=== PATIENT | female | born 1950 | race Hispanic/Latino ===

== ENCOUNTER 2018-08-03 07:24 | Day surgery (SDC) | payer MEDICARE ==
[2018-07-31 11:44] VITALS: BP 172/69
[2018-07-31 11:52] LABS: BASOPHILS % (AUTO) 0.6 % (0.0-5.0); HEMATOCRIT 32.3 % (36-48); LYMPHOCYTES % (AUTO) 30.1 % (21.0-51.0); MEAN CORPUSCULAR HEMOGLOBIN 25.2 pg (27.0-33.0); MEAN CORPUSCULAR HGB CONC 33.3 g/dL (32.0-36.0); MEAN CORPUSCULAR VOLUME 75.5 fL (79-99); MONOCYTES % (AUTO) 7.2 % (3.0-13.0); NEUTROPHILS % (AUTO) 61.1 % (40.0-77.0); PLATELET COUNT (AUTO) 530 K/uL (130-400); RED BLOOD CELL COUNT(AUTO) 4.28 MIL/uL (4.00-5.50); RED CELL DISTRIBUTION WIDTH 15.2 % (11.0-15.5); WHITE BLOOD COUNT (AUTO) 7.2 K/uL (4.8-10.8)
[2018-07-31 12:02] LABS: APPEARANCE,URINE Clear (CLEAR); BILIRUBIN,URINE Negative (NEGATIVE); COLOR,URINE Yellow (YELLOW); GLUCOSE, URINE (UA) Negative (NEGATIVE); KETONES,URINE Negative (NEGATIVE); LEUKOCYTE ESTERASE ,URINE Negative (NEGATIVE); NITRATE,URINE Negative (NEGATIVE); OCCULT BLOOD,URINE Negative (NEGATIVE); PROTEIN,URINE Negative (NEGATIVE); UROBILINOGEN,URINE 0.2 mg/dL (0.2-1.0)
[2018-07-31 12:05] LABS: CREATININE 0.8 mg/dL (0.5-1.5); POTASSIUM 3.8 mmol/L (3.5-5.1)
[2018-07-31 12:08] LABS: INR 0.95 (0.85-1.15)
--- NOTE | 2018-07-31 17:09 | NUR ---
LABS ABNORMAL LABS REPORTED TO [facility], NO FURTHER ORDERS GIVEN
[~2018-08-03] VITALS: Ht 160 cm; Wt 76.9 kg
[2018-08-03] VITALS (9 sets, daily range): BP systolic 130–147; BP diastolic 60–67
[~2018-08-03 07:24] MED LIST: AEC81 PO; AMLO5TAB9 PO; GABA-531 PO; HYDR25TA PO; INSU100I15 SQ; INSU100I21 SQ; ISOS10TA8 PO; LOSA100T58 PO; METF-446 PO; METO25TA6 PO; NITR0.4T50 SL; OMEP20CA10 PO; PRAV20TA4 PO
[2018-08-03] MEDS ORDERED: SODIUM CHLORIDE 0.9% 1000ML 1,000 ML IV ONE (07:29)
[2018-08-03] MEDS ORDERED: BIVALIRUDIN 250 MG/VIAL IV ONE (11:17)
[2018-08-03] MEDS ORDERED: LIDOCAINE HCL 2% 20ML ONE (11:18)
[2018-08-03] MEDS ORDERED: IOHEXOL-350 50ML VIAL IV ONE (11:18)
[2018-08-03] MEDS ORDERED: NITROGLYCERIN 5 MG/ML 10 ML VIAL IV ONE (11:18)
[2018-08-03] MEDS ORDERED: IOHEXOL 350 MG/ML 100ML INFUS..BTL IV ONE (11:18)
[2018-08-03] MEDS ORDERED: FENTANYL CITRATE PF 50 MCG/1 ML 2ML VIAL ONE (11:51)
[2018-08-03] MEDS ORDERED: MIDAZOLAM HCL 1 MG/ML 2ML VIAL ONE (11:51)
[2018-08-03] MEDS ORDERED: SODIUM CHLORIDE 0.9% 1000ML 1,000 ML IV SCH (12:15)
--- NOTE | 2018-08-03 12:30 | NUR ---
POST RECEIVED PT FROM [employer] [facility], S/P [facility], RIGHT GROIN PERCLOSE-DRESSING DRY AND INTACT, SEE POST CATH ASSESSMENT, VS STABLE. PT INSTRUCTED TO KEEP BEDREST FOR 1 HOURS, PLAN OF CARE DISCUSS WITH PT/SPOUSE, CALL LIGHT WITHIN REACH
== END 2018-08-03 17:06 | disposition home or self-care (01) ==
LOC: DAH 07:24
PROVIDERS: ATTEND Internal Medicine Cardiovascular Disease
DX: I25.118 Atherosclerotic heart disease of native coronary artery with other forms of angina pectoris (principal); E11.40 Type 2 diabetes mellitus with diabetic neuropathy, unspecified; E78.5 Hyperlipidemia, unspecified; I10 Essential (primary) hypertension; F15.90 Other stimulant use, unspecified, uncomplicated; Z88.1 Allergy status to other antibiotic agents; Z88.8 Allergy status to other drugs, medicaments and biological substances; Z79.4 Long term (current) use of insulin; Z79.899 Other long term (current) drug therapy; Z79.84 Long term (current) use of oral hypoglycemic drugs; Z85.3 Personal history of malignant neoplasm of breast; Z90.710 Acquired absence of both cervix and uterus; Z98.890 Other specified postprocedural states; Z79.01 Long term (current) use of anticoagulants; Z82.3 Family history of stroke; Z83.3 Family history of diabetes mellitus
CPT/HCPCS: 36415; 71045; 80048; 81003; 82948 ×2; 85025; 85610; 85730; 93005; 93458; A4606; C1760; C1894 ×2; J1644; J2250; J3010; J3490 ×2; J7030; Q9965; Q9967 ×2; 99156; 99157; J0583